=== PATIENT | male | born 1950 | race Caucasian/White ===

== ENCOUNTER → 2018-03-27 | Outpatient (CLI) | payer OTHER, MEDICARE | LOC: FIMAGING 10:06 | PROVIDERS: ATTEND Orthopaedic Surgery | DX: M16.12 Unilateral primary osteoarthritis, left hip (principal) ==

== ENCOUNTER 2018-04-21 06:41 | Inpatient (IN) | payer OTHER, MEDICARE ==
[~2018-04-21 06:41] MED LIST: ROPIVACAINE 0.2% 80 MG, EPINEPHrine 0.2 MG, KETOROLAC TROMETHAMINE 30 MG, morphINE 10 M... IU ONE; TRANEXAMIC ACID 1,000 MG in NS 100 ML IV ONE
[2018-04-21] MEDS ORDERED: ceFAZolin 2 GM/DEXTROSE 100 ML IV ONE (07:10)
[2018-04-21] MEDS ORDERED: FAMOTIDINE 20 MG TAB PO ONE (07:10)
[2018-04-21] MEDS ORDERED: ACETAMINOPHEN 325 MG TAB PO ONE (07:10)
[2018-04-21] MEDS ORDERED: ceFAZolin 1 GM/5 ML SYR ONE (07:49)
--- NOTE | 2018-04-21 07:50 | PDIAF ---
- Diagnosis Diagnosis: left hip djd Code Status: Full Code - Medication Management Discharge Medications: electronically signed and located in the Home Medication List. - Orders Services needed: Home Care, Physical Therapy Home Care Face to Face: I certify that this patient was under my care and that I had the required zxks-js-ebki encounter meeting the encounter requirements on the discharge day. My findings support the fact that the patient is homebound as defined in Home Care Face to Face Continued: CMS Chapter 7 Medicare Benefits Manual 30.1.1 , The condition of the patient is such that there exists a normal inability to leave home and consequently, leaving home would require a considerable and taxing effort. Diet Recommendation: no restrictions on diet Diet Texture: Regular Texture Diet Additional Instructions: TOTAL JOINT ARTHROPLASTY DISCHARGE INSTRUCTIONS 1. Your surgeon follows the [facility] protocol for reducing your risk of DVT (blood clots) following surgery. Medication will be ordered to prevent blood clots. A sudden increase in calf pain and/or swelling could indicate a blood clot in your leg. If this occurs, please call your surgeon or his/her case assistant. An ultrasound of the leg may be necessary to diagnose a blood clot. If you have conditions that make you a higher risk for blood clots, your surgeon may use more aggressive ways to prevent them. Notify your surgeon if you think you are a high risk for blood clots. 2. Wear your white surgical stockings (SANDRA hose) for 2 weeks. This decreases your swelling and may help prevent blood clots. It is ok to remove SANDRA hose at night time to give your legs a break. 3. Swelling and bruising in the surgical leg is common. If you feel that it is excessive, please notify your surgeon. 4. Elevate your surgical leg with the ankle above the hip several times every day. Please keep the leg straight when you elevate by putting pillows under your foot. Do not put pillows under your knee. This will make being able to fully straighten more difficult. This is uncomfortable, but try to do it as much as possible. 5. For total knee replacements use compressive wrap on your knee for 3-5 days after surgery, then you can discontinue it. 6. Use a walker or crutches for 1-2 weeks. Progress your weight-bearing as tolerated. You may start to use a cane when you feel stable and safe. 7. You will receive physical therapy instructions in the hospital. Continue those exercises at home. There are additional exercises in the total joint booklet you were given before surgery. Outpatient physical therapy will begin 7- 10 days after surgery. Please schedule this in advance. 8. Use ice on your knee at least 3-5 times every day for 30 minutes. This helps reduce pain and swelling. Also use it at night before falling asleep. 9. Leave your surgical dressing in place for 2 weeks. Your dressing is water resistant, but not waterproof. Cover it with Saran Wrap or Mvbog-z-Tlhw before showering. You may shower as soon as you feel safe entering a shower. If you notice bleeding from your incision 2 or 3 days after surgery, please notify your surgeon. 10. Due to narcotics, decreased activity and altered diet, most patients experience constipation after surgery. Use sjxj-ctj-cmahbkr stool softeners while you are on narcotics. 11. You may drive a car when you are comfortable bearing weight, have good muscular control of your leg and are off narcotics. This usually occurs 2-4 weeks after surgery, depending on which leg was operated on. 12. If there are questions not addressed here, please refer the [facility] book given for more information. If you still have questions, please contact your surgeon s office. 13. If you have a life-threatening emergency, please call 911 and go to the emergency room immediately. For non-life threatening emergencies, please call your physicians office for advice before going to the emergency room. - Follow Up Care Current Providers and Referrals: HARRIETT SANTO [Other] Sanket Perry MD [Medical Doctor] -
--- NOTE | 2018-04-21 07:50 | PDHPUP ---
History & Physical Update H&P update statement: This history and physical update is based on an assessment of the patient which was completed after admission or registration (within 24 hours), but prior to the surgery/procedure. H&P update: no change in patient's condition since H&P completed
[2018-04-21] MEDS ORDERED: LR 1,000 ML IV ONE (07:58)
[2018-04-21] MEDS ORDERED: MIDAZOLAM 2 MG/2 ML VIAL ONE (08:45)
[2018-04-21] MEDS ORDERED: MIDAZOLAM 2 MG/2 ML VIAL IVP ONE (08:52)
--- NOTE | 2018-04-21 08:54 | PDANEPAE ---
ANE Past Medical History - Cardiovascular History Hx Hypertension: Yes Hx Arrhythmias: No Hx Chest Pain: No Hx Coronary Artery / Peripheral Vascular Disease: No Hx CHF / Valvular Disease: No Hx Palpitations: No - Pulmonary History Hx COPD: No Hx Asthma/Reactive Airway Disease: No Hx Recent Upper Respiratory Infection: No Hx Oxygen in Use at Home: No Hx Sleep Apnea: No Sleep Apnea Screening Result - Last Documented: Negative - Neurologic History Hx Cerebrovascular Accident: No Hx Seizures: No Hx Dementia: No - Endocrine History Hx Diabetes: No Obesity: no - Renal History Hx Renal Disorders: No Renal History Comment: KIDNEY STONES - Neurological & Psychiatric Hx Hx Neurological and Psychiatric Disorders: Yes Neurological / Psychiatric History Comment: ANXIETY - Cancer History Hx Cancer: Yes Cancer History Comment: PROSTATE - Congenital Disorder History Hx Congenital Disorders: No - GI History GERD: no Hx Gastrointestinal Disorders: No - Other Health History Other Health History: NEG - Chronic Pain History Chronic Pain: Yes (L HIP PAIN & LOW BACK PAIN) - Surgical History Prior Surgeries: R KNEE PARTIAL. KIDNEY STONES. HERNIA UMB. L TOE SURGERY. PROSTATECTOMY ANE Review of Systems Review of Systems: - Exercise capacity METS (RN): 4 METS ANE Patient History - Allergies Allergies/Adverse Reactions: No Known Allergies Allergy (Verified 04/21/18 07:14) - Home Medications Home medications: home medication list seen and reviewed Home Medications: Aspirin [Aspirin 81mg (*)] 81 mg PO HS 03/30/18 [Last Taken 04/14/18] Atorvastatin Calcium [Lipitor 20 mg (*)] 20 mg PO HS 03/30/18 [Last Taken ] Citalopram [CeleXA] 20 mg PO HS 03/30/18 [Last Taken 04/20/18] Ibuprofen [Motrin (*)] 200 mg PO DAILY PRN 03/30/18 [Last Taken 04/14/18] Losartan Potassium 100 mg PO HS 03/30/18 [Last Taken 04/20/18] - NPO status NPO Status: no food or drink >8 hours NPO Since - Liquids (Date): 04/20/18 NPO Since - Liquids (Time): 18:00 NPO Since - Solids (Date): 04/20/18 NPO Since - Solids (Time): 18:00 - Anes Hx Anes Hx: no prior problems - Smoking Hx Smoking Status: Never smoked ANE Labs/Vital Signs - Vital Signs Blood Pressure: 133/82 Heart Rate: 79 Respiratory Rate: 16 O2 Sat (%): 95 Height: 175.26 cm Weight: 99.337 kg ANE Physical Exam - Airway Neck exam: FROM Mallampati Score: Class 2 Mouth exam: normal dental/mouth exam - Pulmonary Pulmonary: no respiratory distress, no rales or rhonchi, clear to auscultation - Cardiovascular Cardiovascular: regular rate and rhythym, no murmur, rub, or gallop - ASA Status ASA Status: II ANE Anesthesia Plan Anesthesia Plan: spinal
[2018-04-21] MEDS ORDERED: DEXAMETHASONE 4 MG/ML VIAL ONE ×2 (08:58)
[2018-04-21] MEDS ORDERED: PROPOFOL/EMULSION 500 MG/50 ML BOTTLE IV ONE (08:58)
[2018-04-21] MEDS ORDERED: LIDOCAINE 2% 5 ML SDV ONE (08:59)
[2018-04-21] MEDS ORDERED: PHENYLEPHRINE HCL 100 MCG/ML SYR ONE (09:51)
[2018-04-21] MEDS ORDERED: PROPOFOL 200 MG/20 ML VIAL ONE (10:10)
[2018-04-21] MEDS ORDERED: ONDANSETRON 4 MG/2 ML VIAL IVP PRN ×2 (10:32→10:39)
[2018-04-21] MEDS ORDERED: LR 500 ML IV PRN (10:32)
[2018-04-21] MEDS ORDERED: PROMETHAZINE HCL 25 MG/ML INJ IVP PRN ×2 (10:32→10:39)
[2018-04-21] MEDS ORDERED: NALOXONE HCL 0.4 MG/ML INJ IVP PRN (10:32)
[2018-04-21] MEDS ORDERED: fentaNYL 100 MCG/2 ML INJ IVP PRN (10:32)
[2018-04-21] MEDS ORDERED: HYDROCODONE/APAP 5/325 TAB PO PRN (10:32)
[2018-04-21] MEDS ORDERED: ACETAMINOPHEN 500 MG TAB PO PRN (10:32)
[2018-04-21] MEDS ORDERED: MAGNESIUM HYDROXIDE 30 ML UDCUP PO PRN (10:39)
[2018-04-21] MEDS ORDERED: diphenhydrAMINE 25 MG CAP PO PRN (10:39)
[2018-04-21] MEDS ORDERED: ONDANSETRON DISINTEGRATING 4 MG TAB PO PRN (10:39)
[2018-04-21] MEDS ORDERED: DIPHENOXYLATE/ATROPINE LOMOTIL 1 TAB PO PRN (10:39)
[2018-04-21] MEDS ORDERED: LACTULOSE 20 GM/30 ML UDCUP PO PRN (10:39)
[2018-04-21] MEDS ORDERED: oxyCODONE IR 5 MG TAB PO PRN (10:39)
[2018-04-21] MEDS ORDERED: POLYETHYLENE GLYCOL 3350 17 GM PKT PO PRN (10:39)
[2018-04-21] MEDS ORDERED: PROMETHAZINE HCL 25 MG SUPPR PR PRN (10:39)
[2018-04-21] MEDS ORDERED: TEMAZEPAM 15 MG CAP PO PRN (10:39)
[2018-04-21] MEDS ORDERED: BISACODYL 10 MG SUPP PR PRN (10:39)
[2018-04-21] MEDS ORDERED: METOCLOPRAMIDE 10 MG/2 ML VIAL IVP PRN (10:39)
--- NOTE | 2018-04-21 10:42 | POSTOPPROG ---
Post Op Note Date of Operation: 04/21/18 Surgeon: Sanket Perry Hospital Medicine Director: elsy Anesthesiologist: ysabel Anesthesia: Spinal Pre-op Diagnosis: left hip djd Post-op Diagnosis: same Indication: regina,e Procedure: left mildred Inf/Abcess present in the surg proc area at time of surgery?: No Depth: Deep Incisional (Fascial) EBL: 100-500 Drains: Hemovac
--- NOTE | 2018-04-21 10:56 | POSTANESTH ---
Post Anesthetic Evaluation Cardiovascular Status: Normal, Stable Respiratory Status: Normal, Stable, Similar to Pre-op Cond. Level of Consciousness/Mental Status: Can Participate in Eval, Moderately Sleepy Pain Control: Adequate, Prn Tx Ordered Nausea/Vomiting Control: Adequate, Prn Tx Ordered Complications Possibly Related to Anesthesia: None Noted
[2018-04-21] MEDS ORDERED: LR 1,000 ML IV SCH (11:00)
--- NOTE | 2018-04-21 11:55 | PDMN ---
Medical Necessity Medical necessity: [facility] S560 Hip Arthroplasty, A-2 days: 68 yo s/p L IZA, [facility] IP only
[2018-04-21] MEDS: ACETAMINOPHEN 325 MG TAB PO SCH ×2 (12:37→17:25)
--- NOTE | 2018-04-21 13:05 | GOP ---
DATE OF OPERATION: 04/21/2018 SURGEON: Sanket Perry MD JANITOR HELPER: Shaun Gonzalez CST, OPERATION MANAGER, assistant brand manager, was a medical necessity for the entirety of the case. PREOPERATIVE DIAGNOSIS: Left hip degenerative joint disease. POSTOPERATIVE DIAGNOSIS: Left hip degenerative joint disease. PROCEDURE PERFORMED: FINDINGS: SPECIMENS: To Pathology, femoral head. DESCRIPTION OF PROCEDURE: The patient was identified in the preanesthesia area. The left hip clearl y demarcated as the operative site with indelible marker. He was given 2 g of Ancef intravenously in route to the operative suite. In the OR, a spinal anesthetic was placed. He was positioned in supi ne position. Additional sedation was placed. The pelvis and both lower extremities were sterilely p repped and draped in usual fashion. Appropriate time-out procedure was carried out. The pelvis and lower extremities were sterilely prepped and draped. Attention was first turned to the right iliac c rest. A 2 cm incision was made. Three pins were then placed and the pelvic reference array affixed. Attention was then turned to the left hip. An anterior approach was made. Thick subcutaneous flap s were elevated. The fascia overlying the tensor was elevated. The tensor retracted laterally. The underlying vascular structures identified, ligated, cauterized and transected. Retractors were plac ed in an extracapsular position. A T capsulotomy was then made. Retractors were then placed in an i ntracapsular position. A bony wedge was withdrawn from the femoral neck and the femoral head was rem nishant. The remnants of the acetabular labrum were sharply excised. The bony landmarks were entered i n the computer using the MAKOplasty robot, reaming for a 60 mm cup. It was placed with an opening an gle of 40 degrees and anteversion of 20 degrees. A 60 mm cup was then placed, confirmed to be fully seated. A single screw was then placed superiorly. A 0 degree X3 liner then was placed and confirme d to be seated. Attention was then turned to the femur which was delivered through the use of extens ion of the table and soft tissue retractor placement. Proximal canal was opened. Serial broaching c arried out to a size 6 stem. Trial reduction was carried out with a 6 stem 0 mm neck length. This d emonstrated shortening of the leg, but appropriate position alignment of the stem. A 132 degrees ang le size 6 stem was then impacted, confirmed to be fully seated, and a +7.5 mm Biolox head was impacte d across the trunnion, confirmed to be fully seated. The hip was copiously irrigated and reduced. L eg lengths were equal. There was no instability with external rotation to 90 degrees at full extensi on and no anterior instability. The wound was copiously irrigated and closed in layers using 0 Vicry l, 2-0 Monocryl, and shilpi. The margins were instilled with a joint cocktail of ropivacaine, Torad ol and epinephrine. A 10-Macanese Hemovac drain was placed. The patient was awakened and taken to rec overy room in good and stable condition. PROCEDURE: Left total hip arthroplasty, MAKOplasty. OPERATIVE INDICATIONS: Arian is a 68-year-old gentleman with end-stage arthritis to his left hip. Cl inical and radiographic features are consistent with this. He has failed all attempts at conservativ e management. I therefore recommended operative intervention. I have outlined the surgical procedur e, risks, benefits, and alternatives. He wished to proceed. Written consent was signed and placed i n the patient's chart. TOTAL TOURNIQUET TIME: None. COMPLICATIONS: None. IMPLANT: Fransisca acetabular shell size 60, size 6 x 132 degree neck angle hip stem, Accolate 2, a Bi olox head 36 mm, +7.5 mm neck length, 0-degree X3 liner. DISPOSITION: To the recovery room, then the floor. He is weightbearing as tolerated. Anterior hip precautions. /[id number]/MODL
[2018-04-21] MEDS: TRANEXAMIC ACID 650 MG TAB PO SCH ×2 (13:50→21:50)
[2018-04-21] MEDS: CYCLOBENZAPRINE 10 MG TAB PO PRN ×2 (13:54→21:50)
[2018-04-21] MEDS: ceFAZolin 2 GM/DEXTROSE 100 ML IV SCH (17:23)
[2018-04-21] MEDS ORDERED: ATORVASTATIN CALCIUM 20 MG TAB PO SCH (21:00)
[2018-04-21] MEDS ORDERED: CITALOPRAM 20 MG TAB PO SCH (21:00)
[2018-04-21] MEDS ORDERED: LOSARTAN POTASSIUM 50 MG TAB PO SCH (21:00)
[2018-04-21] MEDS: FAMOTIDINE 20 MG TAB PO SCH (21:01)
[2018-04-21] MEDS: ASPIRIN 325 MG TAB PO SCH (21:01)
[2018-04-21] MEDS: SENNOSIDES/DOCUSATE SODIUM TAB PO SCH (21:01)
[2018-04-22] MEDS: ceFAZolin 2 GM/DEXTROSE 100 ML IV SCH (00:16)
[2018-04-22] MEDS: ACETAMINOPHEN 325 MG TAB PO SCH ×2 (00:16→06:12)
[2018-04-22 05:02] VITALS: BP 142/87
[2018-04-22] MEDS: TRANEXAMIC ACID 650 MG TAB PO SCH (06:11)
[2018-04-22] MEDS: CYCLOBENZAPRINE 10 MG TAB PO PRN (06:12)
--- NOTE | 2018-04-22 07:55 | PDIAF ---
- Diagnosis Diagnosis: left hip djd Code Status: Full Code - Medication Management Discharge Medications: electronically signed and located in the Home Medication List. - Orders Services needed: Home Care, Physical Therapy Home Care Face to Face: I certify that this patient was under my care and that I had the required giid-jm-wlfe encounter meeting the encounter requirements on the discharge day. My findings support the fact that the patient is homebound as defined in Home Care Face to Face Continued: CMS Chapter 7 Medicare Benefits Manual 30.1.1 , The condition of the patient is such that there exists a normal inability to leave home and consequently, leaving home would require a considerable and taxing effort. Diet Recommendation: no restrictions on diet Diet Texture: Regular Texture Diet Additional Instructions: TOTAL JOINT ARTHROPLASTY DISCHARGE INSTRUCTIONS 1. Your surgeon follows the [facility] protocol for reducing your risk of DVT (blood clots) following surgery. Medication will be ordered to prevent blood clots. A sudden increase in calf pain and/or swelling could indicate a blood clot in your leg. If this occurs, please call your surgeon or his/her speech language assistant. An ultrasound of the leg may be necessary to diagnose a blood clot. If you have conditions that make you a higher risk for blood clots, your surgeon may use more aggressive ways to prevent them. Notify your surgeon if you think you are a high risk for blood clots. 2. Wear your white surgical stockings (SANDRA hose) for 2 weeks. This decreases your swelling and may help prevent blood clots. It is ok to remove SANDRA hose at night time to give your legs a break. 3. Swelling and bruising in the surgical leg is common. If you feel that it is excessive, please notify your surgeon. 4. Elevate your surgical leg with the ankle above the hip several times every day. Please keep the leg straight when you elevate by putting pillows under your foot. Do not put pillows under your knee. This will make being able to fully straighten more difficult. This is uncomfortable, but try to do it as much as possible. 5. For total knee replacements use compressive wrap on your knee for 3-5 days after surgery, then you can discontinue it. 6. Use a walker or crutches for 1-2 weeks. Progress your weight-bearing as tolerated. You may start to use a cane when you feel stable and safe. 7. You will receive physical therapy instructions in the hospital. Continue those exercises at home. There are additional exercises in the total joint booklet you were given before surgery. Outpatient physical therapy will begin 7- 10 days after surgery. Please schedule this in advance. 8. Use ice on your knee at least 3-5 times every day for 30 minutes. This helps reduce pain and swelling. Also use it at night before falling asleep. 9. Leave your surgical dressing in place for 2 weeks. Your dressing is water resistant, but not waterproof. Cover it with Saran Wrap or Rlkzb-w-Eyrh before showering. You may shower as soon as you feel safe entering a shower. If you notice bleeding from your incision 2 or 3 days after surgery, please notify your surgeon. 10. Due to narcotics, decreased activity and altered diet, most patients experience constipation after surgery. Use eswe-nrz-anhadxc stool softeners while you are on narcotics. 11. You may drive a car when you are comfortable bearing weight, have good muscular control of your leg and are off narcotics. This usually occurs 2-4 weeks after surgery, depending on which leg was operated on. 12. If there are questions not addressed here, please refer the [facility] book given for more information. If you still have questions, please contact your surgeon s office. 13. If you have a life-threatening emergency, please call 911 and go to the emergency room immediately. For non-life threatening emergencies, please call your physicians office for advice before going to the emergency room. - Follow Up Care Current Providers and Referrals: HARRIETT SANTO [Other] Sanket Perry MD [Medical Doctor] -
--- NOTE | 2018-04-22 07:56 | SOAPPROG ---
SOAP Progress Note Assessment/Plan: Assessment: s/p mildred Plan:dc home stable dvt precautions reviewed f/u at two weeks seek attn for increasing pain, cp, sob 04/22/18 07:55 Subjective: doing well mild ache to muscles Objective: Vital Signs Temp Pulse Resp BP Pulse Ox 36.8 C 85 16 142/87 H 94 04/22/18 04:00 04/22/18 04:00 04/22/18 04:00 04/22/18 04:00 04/22/18 04:00 Laboratory Results 04/22/18 04:57 04/21/18 04/22/18 04/23/18 05:59 05:59 05:59 Intake Total 2450 Output Total 1500 Balance 950 dresing intact intact pf,df,ehl patient up walking in hallway no calf swelling or ttp xray stable anatomic alignment, no fx or lucency ICD10 Worksheet Patient Problems: Problems Problem Status Onset Hip arthritis Acute - ICD10 Problem Qualifiers (1) Hip arthritis
[2018-04-22] MEDS: FAMOTIDINE 20 MG TAB PO SCH (08:16)
[2018-04-22] MEDS: ASPIRIN 325 MG TAB PO SCH (08:16)
[2018-04-22] MEDS: SENNOSIDES/DOCUSATE SODIUM TAB PO SCH (08:16)
--- NOTE | 2018-04-22 09:55 | GDS ---
ADMIT DIAGNOSIS: Left hip degenerative joint disease. DISCHARGE DIAGNOSIS: Left hip degenerative joint disease. PROCEDURE: Left total hip arthroplasty - MAKOplasty. HISTORY OF PRESENT ILLNESS: Arian Wagner is a 68-year-old gentleman with end-stage arthritis to his l eft hip. Clearly, he has failed attempts at conservative management. Clinical radiographic details are consistent with hip arthritis. I have therefore recommended total hip replacement. He presents for elective total hip replacement. HOSPITAL COURSE: The patient was admitted overnight after uncomplicated total hip arthroplasty. He tolerated the procedure well. At the time of discharge, he is tolerating an oral diet, pain is well controlled on oral medicines, he is voiding without difficulty. Dressing is clean, dry and intact. He has negative Homans'. X-rays are stable with anatomic alignment, concentric reduction. No fractu re lucency. DISCHARGE ACTIVITY: Weightbearing as tolerated, range of motion as tolerated with anterior hip preca utions. Keep the dressing clean, dry and intact. Follow up in 2 weeks. Seek attention for increasi ng redness, swelling, drainage, discharge, leg pain or other focal complaint. DISCHARGE MEDICATIONS: 1. Oxycodone 5 mg 1-2 every 6 hours p.r.n. pain. 2. Flexeril 10 mg p.o. 3 times daily p.r.n. spasm. 3. Aspirin 325 mg p.o. daily. /[id number]/MODL
--- NOTE | 2018-04-22 09:58 | ASMTLACE ---
LACE Length of stay for Answers: 2 days current admission Acuity / Level of Answers: Yes Care: Did the patient have an inpatient admission? Comorbidities - select Answers: Any tumor (including all that apply lymphoma or leukemia) Opioid dependence / Chronic pain Other Notes: HTN # of Emergency department Answers: 0 visits in the last 6 months Social determinants Answers: Mental health diagnosis (anxiety, depression, pers onality disorders, etc.) Score: 15 Date Signed: 04/22/2018 09:58 AM Electronically Signed By:NATALIA Rodriguez
--- NOTE | 2018-04-22 09:58 | ASMTCMCOM ---
CM Note CM Note Notes: Pt had planned OA of hip. PT rec home/outpatient. Pt declines [facility], reports he is close and to [place] outpatient PT he would like to go to. No CM d/c needs identified. Date Signed: 04/22/2018 09:57 AM Electronically Signed By:NATALIA Rodriguez
--- NOTE | 2018-04-22 10:11 | ASMTCMCOM ---
CM Note CM Note Notes: Pt decides he does want HHC, referral sent to Jake Elena in [employer]. Date Signed: 04/22/2018 10:10 AM Electronically Signed By:NATALIA Rodriguez
--- NOTE | 2018-04-22 16:57 | ASDISCHSUM ---
Discharge Information Plan Status:Home with Home Health Medically Cleared to Leave: Discharge Date:04/22/2018 10:33 AM CM D/C Disposition: ADT D/C Disposition:Home Health Service Projected Discharge Date:04/22/2018 11:00 AM Transportation at D/C: Discharge Delay Reason: Follow-Up Date:04/22/2018 11:00 AM Discharge Slot: Final Diagnosis: Placement Information Referral Type:*Home Health Care Services Referral ID:[id number] Provider Name:[facility] Address 1:[address] [place] [address] Address 2: City:[place] Selection Factors: State:[place] Patient Contact Information Contact Name:ELDER Relationship: Address:[address] Work Phone: [place] [place] Alternate Phone: State/Zip Code:[place] [address] Email: Financial Information Financial Class:Medicare Primary Plan Desc:MEDICARE INPATIENT Primary Plan Number:[id number] Secondary Plan Desc:[employer]/M[employer] SUPPLEMENT Secondary Plan Number:[id number] Assessment Information LACE LACE Length of stay for Answers: 2 days current admission Acuity / Level of Answers: Yes Care: Did the patient have an inpatient admission? Comorbidities - select Answers: Any tumor (including all that apply lymphoma or leukemia) Opioid dependence / Chronic pain Other Notes: HTN # of Emergency department Answers: 0 visits in the last 6 months Social determinants Answers: Mental health diagnosis (anxiety, depression, pers onality disorders, etc.) Score: 15 Date Signed: 04/22/2018 09:58 AM Electronically Signed By:NATALIA Rodriguez [facility] CM Progress Note CM Note CM Note Notes: Pt had planned OA of hip. PT rec home/outpatient. Pt declines [facility], [facility] No CM d/c needs identified. Date Signed: 04/22/2018 09:57 AM Electronically Signed By:NATALIA Rodriguez [facility] CM Progress Note CM Note CM Note Notes: Pt decides he does want HHC, referral sent to Jake Elena in [employer]. Date Signed: 04/22/2018 10:10 AM Electronically Signed By:NATALIA Rodriguez Intervention Information
== END 2018-04-22 10:33 | disposition home health service (06) | DRG 470 ==
LOC: F3N 06:41
PROVIDERS: ADMIT Orthopaedic Surgery; ATTEND Orthopaedic Surgery
PROC: 0SRB04A Replacement of Left Hip Joint with Ceramic on Polyethylene Synthetic Substitute, Uncemented, Open Approach (ICD-10-PCS; principal; 2018-04-21 08:45)
PROC: 8E0Y0CZ Robotic Assisted Procedure of Lower Extremity, Open Approach (ICD-10-PCS; principal; 2018-04-21 08:45)
DX: M16.12 Unilateral primary osteoarthritis, left hip (principal); E78.5 Hyperlipidemia, unspecified; I10 Essential (primary) hypertension; Z85.46 Personal history of malignant neoplasm of prostate; Z90.79 Acquired absence of other genital organ(s); Z96.651 Presence of right artificial knee joint; F41.9 Anxiety disorder, unspecified
CPT/HCPCS: 97110-GP; 97116-GP; 97161-GP; 97165-GO; C1713; J0171; J0690; J1100; J1885; J2250; J2270; J2370; J2704; J2795

== ENCOUNTER → 2018-06-02 | Outpatient (CLI) | payer OTHER, MEDICARE | LOC: BMCIMAGING 08:42 | PROVIDERS: ATTEND Orthopaedic Surgery | DX: Z47.1 Aftercare following joint replacement surgery (principal); Z96.642 Presence of left artificial hip joint ==

== ENCOUNTER → 2018-07-18 | Outpatient (CLI) | payer OTHER, MEDICARE | LOC: BMCIMAGING 08:41 | PROVIDERS: ATTEND Orthopaedic Surgery | DX: Z47.1 Aftercare following joint replacement surgery (principal); Z96.642 Presence of left artificial hip joint ==